=== PATIENT | female | born 1960 | race Two or more races ===

== ENCOUNTER 2023-08-20 19:59 | Emergency (ER) | payer OTHER ==
[~2023-08-20] VITALS: Ht 160 cm; Wt 72.6 kg
[2023-08-20] MEDS ORDERED: SERTRALINE HCL100 MG (20:10)
[2023-08-20] MEDS ORDERED: LISINOPRIL10 MG (20:10)
[2023-08-20] MEDS ORDERED: METFORMIN HCL500 M4 (20:10)
[2023-08-20] MEDS ORDERED: FAMOTIDINE40 MG (20:10)
[2023-08-20] MEDS ORDERED: ATORVASTATIN CA20 MG (20:10)
[2023-08-20] MEDS ORDERED: GABAPENTIN600 MG (20:10)
[2023-08-20] MEDS ORDERED: TOPIRAMATE100 MG (20:10)
== END 2023-08-20 22:26 | disposition home or self-care (01) ==
LOC: ER 19:59
DX: M54.9 Dorsalgia, unspecified (principal)
CPT/HCPCS: 72100; 96372; 99283; J1885